=== PATIENT | female | born 1965 | race Caucasian/White ===

== ENCOUNTER 2017-10-12 04:19 | Inpatient (IN) | payer OTHER ==
[~2017-10-12] VITALS: Ht 157.5 cm; Wt 82.6 kg
--- NOTE | 2017-10-12 04:52 | NUR ---
PT BIBA FOR HBP AND HEADACHE X 1 WEEK PER PT. PT AOX3 RR EVEN AND UNLABORED. NO SOB NOTED. NAD NOTED. NO NVD AT THIS TIME. PT NOT DIAPHORETIC. PT GOWNED AND PLACED ON MONITOR. DR LOO AT BEDSIDE FOR EVAL.
[2017-10-12 05:00] LABS: BASOPHILS # (AUTO) 0.1 /CMM (0.0-0.2); BASOPHILS % (AUTO) 0.6 % (0.0-2.0); EOSINOPHILS % (AUTO) 1.2 % (0.0-6.0); HEMATOCRIT 37 % (33-45); HEMOGLOBIN 12.6 g/dL (11.5-14.8); LYMPHOCYTES # (AUTO) 3.4 /CMM (0.8-4.8); LYMPHOCYTES % (AUTO) 30.7 % (20.0-44.0); MEAN CORPUSCULAR HGB CONC 34 g/dl (31.0-36.0); MEAN CORPUSCULAR VOLUME 85 fL (82-100); MONOCYTES # (AUTO) 0.6 /CMM (0.1-1.30); MONOCYTES % (AUTO) 5.2 % (2.0-12.0); NEUTROPHILS % (AUTO) 62.3 % (43.0-81.0); PLATELET COUNT (AUTO) 313 /CMM (150-450); RDW COEFFICIENT OF VARIATION 13.9 (11.5-15.0); WHITE BLOOD COUNT (AUTO) 11.2 K/uL (4.3-11.0)
[2017-10-12 05:10] LABS: CALCIUM, SERUM 8.8 mg/dL (8.5-10.1); CARBON DIOXIDE 25 mmol/L (21-32); CHLORIDE 90 mmol/L (98-107); CREATININE 0.8 mg/dL (0.6-1.3); GLUCOSE 132 mg/dL (74-106); SODIUM SERUM 127 mmol/L (136-145); UREA NITROGEN, BLOOD 11 mg/dL (7-18)
[2017-10-12 05:14] LABS: INR 0.98 (0.87-1.13)
[2017-10-12 05:18] LABS: TROPONIN I < 0.017 ng/mL (0.00-0.056)
[2017-10-12] MEDS ORDERED: IV NS 0.9% 1,000 ML BAG IV ONE (05:30)
[2017-10-12] MEDS ORDERED: POTASSIUM CHLORIDE 20 MEQ TAB.PRT.SR PO ONE ×2 (05:30→05:33)
--- NOTE | 2017-10-12 06:59 | NUR ---
PT APPEARS COMFORTABLE. VSS.
[2017-10-12] MEDS ORDERED: IV NS 0.9% 500 ML IV PRN (07:00)
[2017-10-12] MEDS ORDERED: NITROGLYCERIN 0.4 MG/TAB BOTTLE SL PRN (07:00)
[2017-10-12] MEDS ORDERED: NITROGLYCERIN PACKET 1 GM PACKET TD PRN (07:00)
--- NOTE | 2017-10-12 07:27 | NUR ---
PATIENT ON BED. VSS
--- NOTE | 2017-10-12 07:27 | NUR ---
REPORT GIVEN TO HAYDEN CORONEL.
--- NOTE | 2017-10-12 07:27 | NUR ---
PATIENT ON BEDS, VSS.
--- NOTE | 2017-10-12 08:00 | NUR ---
ADMISSION NOTES PATIENT ADMITTED FROM ER 51 Y/OLD FEMALE TELE ON Dx. OF CHEST PAIN. TELE MONITOR ON, SR-85. V/S TAKEN BP- 119/76, P-66, R-19, O2-93 ROOM AIR, T-98.4. PATIENT A/O X4. PATIENT C/O HEADACHE AT THIS TIME 01/13. PATIENT AMBULATORY SELF CARE, USING BATHROOM. SKIN ASSESSMENT DONE INTACT. NO ACUTE RESPIRATORY DISTRESS. LUNGS ARE CLEAR DURING AUSCULTATION. IV ACCESS ON LEFT AC AREA INTACT. CALL LIGHT WITHIN TO REACH, NEEDS ATTENDED AND ANTICIPATED, PATIENT MED COMPLIANT. KINJAL GARY AWARE OF NEW PATIENT AND MEDICATION. CONTINUED MONITORING.
[2017-10-12 08:07] LABS: APPEARANCE,URINE CLEAR (CLEAR); BILIRUBIN,URINE NEGATIVE (NEGATIVE); BLOOD, URINE TRACE Ery/uL (NEGATIVE); COLOR,URINE YELLOW (YELLOW); KETONES,URINE NEGATIVE (NEGATIVE); LEUKOCYTE ESTERASE ,URINE NEGATIVE (NEGATIVE); NITRITE, URINE NEGATIVE (NEGATIVE); PROTEIN,URINE NEGATIVE (NEGATIVE); UGLUCOSE NEGATIVE (NEGATIVE); UROBILINOGEN,URINE 0.2 EU/dL (0.2)
[2017-10-12] MEDS ORDERED: LORA0.5T PO (08:07)
[2017-10-12] MEDS ORDERED: HYDR12.55 PO (08:07)
[2017-10-12] MEDS ORDERED: ASPI-1152 PO (08:07)
[2017-10-12] MEDS ORDERED: FLUO20CA36 PO (08:07)
[2017-10-12 08:13] LABS: BACTERIA,URINE Few /HPF (None Seen); SQUAMOUS EPITHELIAL CELL,UR 0-2 /HPF (None Seen); WBC,URINE 0-2 /HPF (0-3)
[2017-10-12 08:45] LABS: BILIRUBIN,DIRECT 0.2 mg/dL (0.0-0.2); BILIRUBIN,TOTAL 1.3 mg/dL (0.2-1.0)
[2017-10-12] MEDS: ACETAMINOPHEN 325 MG TABLET PO PRN ×3 (09:49→19:03)
--- NOTE | 2017-10-12 09:49 | NUR ---
rn notes administered tylenol 650 mg po prn for headache per patient request, continued monitoring.
[2017-10-12] MEDS: CLOPIDOGREL BISULFATE 75 MG TABLET PO SCH (09:50)
[2017-10-12] MEDS: ASPIRIN 325 MG TABLET PO SCH (09:50)
[2017-10-12] MEDS: ENOXAPARIN SODIUM 40 MG/0.4 ML DISP.SYRIN SQ SCH (09:52)
[2017-10-12 10:00] VITALS: BP 119/76
[2017-10-12] MEDS ORDERED: MORPHINE SULFATE INJ 4 MG/ML DISP.SYRIN IV PRN (10:00)
[2017-10-12] MEDS ORDERED: IV NS 0.9% 500 ML IV ONE (11:00)
[2017-10-12 12:14] LABS: THYROID STIMULATING HORMONE 4.373 uIU/mL (0.358-3.74)
[2017-10-12] MEDS: POTASSIUM CHLORIDE 20 MEQ TAB.PRT.SR PO SCH ×3 (12:43→13:49)
[2017-10-12] MEDS: Magnesium 1GM/D5W 100ML PREMIX 100 ML IV SCH ×2 (12:44→13:48)
[2017-10-12 12:49] LABS: MAGNESIUM 1.6 mg/dL (1.8-2.4); PHOSPHORUS 3.8 mg/dL (2.5-4.9)
--- NOTE | 2017-10-12 13:55 | NUR ---
RN NOTES ADMINISTERED TYLENOL FOR GENERALIZED PAIN 5/10, INFUSING NS AT 200 ML/HR LEFT AC AREA INTACT. CALL LIGHT WITHIN TO REACH CONTINUED MONITORING.
[2017-10-12 16:00] VITALS: BP 137/85
[2017-10-12] MEDS: IV NS 0.9% 1,000 ML IV PRN ×2 (17:18→21:48)
--- NOTE | 2017-10-12 17:38 | NUR ---
RN NOTES PATIENT WAS COMPLAINING OF ANXIETY, CHEST PAIN. ADMINISTERED NITRO ONE TAB PRESCRIBED SUBLINGUAL, BP -109/74, P-70, CONTINUED MONITORING IN FIVE MINUTES. FAMILY NEXT TO THE BED.
--- NOTE | 2017-10-12 17:53 | NUR ---
RN NOTES MEDICATION WERE ADMINISTERED FOR CHEST PAIN EFFECTIVE. PATIENT EATING AT THIS TIME. CONTINUED MONITORING.
--- NOTE | 2017-10-12 18:04 | NUR ---
RN NOTES GET ORDER FOR PSYCH CONSULTATION, ORDER TAKEN AND CARRIED OUT.
--- NOTE | 2017-10-12 19:03 | NUR ---
RN NOTES ADMINISTERED TYLENOL 650 MG PO PRN FOR HEADACHE. 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 PATIENT HAS NO RESPIRATORY DISTRESS, V/S STABLE, CALL LIGHT WITHIN TO REACH. CONTINUED MONITORING.
--- NOTE | 2017-10-12 19:30 | NUR ---
MS RN OPENING NOTES RECEIVED PT IN BED ALERT, AWAKE, VERBALLY RESPONSIVE, ON ROOM AIR, RESPIRATIONS EVEN, UNLABORED, NO APPARENT DISTRESS NOTED. DENIES ANY PAIN OR DISCOMFORT AT THIS TIME. IV SITE LAC INTACT, PATENT. CALL LIGHT WITHIN REACH. BED LOCKED IN LOWEST POSITION. ATTENDED ALL NEEDS. WILL CONTINUE TO MONITOR ACCORDINGLY.
[2017-10-12 20:00] VITALS: BP 143/83
[2017-10-12 22:00] VITALS: BP 128/80
[2017-10-13] MEDS: IV NS 0.9% 1,000 ML IV PRN ×2 (02:46→07:33)
[2017-10-13] MEDS: ACETAMINOPHEN 325 MG TABLET PO PRN ×2 (05:29→18:29)
--- NOTE | 2017-10-13 06:16 | NUR ---
MS RN CLOSING NOTES PT IN BED ALERT, AWAKE, VERBALLY RESPONSIVE, ON ROOM AIR, RESPIRATIONS EVEN, UNLABORED, NO APPARENT DISTRESS NOTED. DENIES ANY PAIN OR DISCOMFORT AT THIS TIME. IV SITE INTACT, PATENT. CALL LIGHT WITHIN REACH. BED LOCKED IN LOWEST POSITION. KEPT CLEAN AND COMFORTABLE.ATTENDED ALL NEEDS. WILL ENDORSE TO DAY SHIFT FOR CONTINUITY OF CARE.
[2017-10-13 06:53] LABS: BASOPHILS % (AUTO) 0.6 % (0.0-2.0); HEMATOCRIT 36 % (33-45); HEMOGLOBIN 12.1 g/dL (11.5-14.8); LYMPHOCYTES # (AUTO) 2.2 /CMM (0.8-4.8); LYMPHOCYTES % (AUTO) 35.8 % (20.0-44.0); MEAN CORPUSCULAR HGB CONC 34 g/dl (31.0-36.0); MEAN CORPUSCULAR VOLUME 85 fL (82-100); MONOCYTES # (AUTO) 0.5 /CMM (0.1-1.30); MONOCYTES % (AUTO) 8.3 % (2.0-12.0); NEUTROPHILS # (AUTO) 3.2 /CMM (1.8-8.9); NEUTROPHILS % (AUTO) 53.3 % (43.0-81.0); PLATELET COUNT (AUTO) 304 /CMM (150-450); RDW COEFFICIENT OF VARIATION 14.6 (11.5-15.0); RED BLOOD CELL COUNT(AUTO) 4.16 MIL/uL (4.0-5.2)
[2017-10-13 07:02] LABS: APPEARANCE,URINE CLEAR (CLEAR); BILIRUBIN,URINE NEGATIVE (NEGATIVE); BLOOD, URINE NEGATIVE Ery/uL (NEGATIVE); KETONES,URINE NEGATIVE (NEGATIVE); LEUKOCYTE ESTERASE ,URINE NEGATIVE (NEGATIVE); NITRITE, URINE NEGATIVE (NEGATIVE); PH,URINE 6.5 (5.0-8.0); PROTEIN,URINE NEGATIVE (NEGATIVE); UGLUCOSE NEGATIVE (NEGATIVE); UROBILINOGEN,URINE 0.2 EU/dL (0.2)
[2017-10-13 07:08] LABS: ALANINE AMINOTRANSFERASE 48 U/L (12-78); ALBUMIN 3.5 g/dL (3.4-5.0); ALKALINE PHOSPHATASE 80 U/L (46-116); ASPARTATE AMINOTRANSFERASE 31 U/L (15-37); BILIRUBIN,TOTAL 0.7 mg/dL (0.2-1.0); CALCIUM, SERUM 8.3 mg/dL (8.5-10.1); CARBON DIOXIDE 27 mmol/L (21-32); CHLORIDE 107 mmol/L (98-107); CREATININE 0.6 mg/dL (0.6-1.3); GLUCOSE 94 mg/dL (74-106); MAGNESIUM 3.2 mg/dL (1.8-2.4); POTASSIUM 3.8 mmol/L (3.5-5.1); SODIUM SERUM 142 mmol/L (136-145); TOTAL PROTEIN, SERUM 7.7 g/dL (6.4-8.2); UREA NITROGEN, BLOOD 8 mg/dL (7-18)
[2017-10-13 07:12] LABS: CHOLESTEROL 228 mg/dL (<200); HDL CHOLESTEROL 60 mg/dL (40-60); LDL 150 mg/dL (0-99); TRIGLYCERIDES 118 mg/dL (30-150); TROPONIN I < 0.017 ng/mL (0.00-0.056)
[2017-10-13 07:23] LABS: COLOR,URINE STRAW (YELLOW)
[2017-10-13 08:00] VITALS: BP 121/69
--- NOTE | 2017-10-13 08:00 | NUR ---
RN NOTES SEEN PATIENT IN THE BED A/O X4, MEDICATION WERE NIGHT NURSE GIVEN FOR PAIN EFFECTIVE, SCHEDULED MEDICATION ADMINISTERED, V/S STABLE, INFUSING NS AT 200 ML/HR IN LEFT AC AREA INTACT. PATIENT AMBULATORY, SELF CARE. CALL LIGHT WITHIN TO REACH, CONTINUED MONITORING.
[2017-10-13] MEDS: ASPIRIN 325 MG TABLET PO SCH (09:00)
[2017-10-13] MEDS: ENOXAPARIN SODIUM 40 MG/0.4 ML DISP.SYRIN SQ SCH (09:01)
[2017-10-13] MEDS: CLOPIDOGREL BISULFATE 75 MG TABLET PO SCH (09:01)
--- NOTE | 2017-10-13 11:15 | NUR ---
RN NOTES PATIENT SITTING IN THE CHAIR, C/O GETTING ANXIOUS, HEART PALPITATION, DIZZINESS, AND DISBALANCE, ALSO COPLANING OF MID UPPER BACK PAIN 4/10, AND LEFT UPPER CHEST PAIN. PATIENT SEEN BY DR ROBB, AND KINJAL GARY. GET VERBAL ORDER ORTHOSTATIC V/S. ORDER TAKEN AND CARRIED OUT. CALL LIGHT WITHIN TO REACH, CONTINUED MONITORING.
[2017-10-13 11:30] VITALS: BP 151/83
[2017-10-13 11:31] VITALS: BP 149/92
[2017-10-13 11:32] VITALS: BP 135/87
[2017-10-13] MEDS: OLANZAPINE 2.5 MG TABLET PO SCH ×2 (12:30→17:36)
[2017-10-13 16:00] VITALS: BP 142/80
--- NOTE | 2017-10-13 18:29 | NUR ---
RN NOTES ADMINISTERED TYLENOL 650 MG PO PRN FOR HEADACHE, PER PATIENT REQUEST,V/S STABLE, SCHEDULED MEDICATION ADMINISTERED, PATIENT AMBULATORY SELF CARE, CALL LIGHT WITHIN TO REACH. CONTINUED MONITORING. ENDORSED ONCOMING NURSE FOR SHONNA.
--- NOTE | 2017-10-13 19:30 | NUR ---
RN NOTE; RECEIVED PT IN BED W/ FAMILY AT THE BED SIDE. BREATHING EVENLY. NO SOB. DENIED CP. SKIN WARM AND DRY. BED LOW LOCKED. CALL LIGHT WITHIN REACH. WILL CONT TO MONITOR .
[2017-10-13 20:00] VITALS: BP 136/71
--- NOTE | 2017-10-14 06:17 | NUR ---
PT AWAKE AND ALERT. STABLE W/ NO ACUTE EVENT DURING THE NIGHT,. NO C/O PAIN OR DISCOMFORT , NO CHEST PAIN. NEEDS ATTENDED. BED LOW LOCKED. CALL LIGHT WITHIN REACH, WILL CONT TO MONITOR AND WILL ENDORSE TO AM SHIFT FOR SHONNA.
[2017-10-14 08:00] VITALS: BP 129/83
[2017-10-14] MEDS ORDERED: ERGOCALCIFEROL (VITAMIN D 2) 50,000 UNIT CAPSULE PO SCH (08:00)
[2017-10-14] MEDS ORDERED: ASPIRIN EC 81 MG TABLET.DR PO SCH (09:00)
[2017-10-14] MEDS: ENOXAPARIN SODIUM 40 MG/0.4 ML DISP.SYRIN SQ SCH (09:00)
[2017-10-14] MEDS: OLANZAPINE 2.5 MG TABLET PO SCH (09:19)
[2017-10-14] MEDS: CLOPIDOGREL BISULFATE 75 MG TABLET PO SCH (09:19)
--- NOTE | 2017-10-14 13:10 | NUR ---
DISCHARGE INSTRUCTIONS GIVEN TO THE PATIENT AND ABLE TO UNDERSTAND. ALL PAPERWORK SIGNED AND BELONGINGS ACCOUNTED FOR. NEW PRESCRIPTION FOR ZYPREXA GIVEN TO THE PATIENT WITH INSTRUCTIONS TO TO START THE MEDICATION TONIGHT WITH DINNER; ALSO GAVE FOLLOW UP INSTRUCTIONS FOR DR BYRNES. PATIENT STATES SHE HAS PLENTY OF HER OTHER PRESCRIPTIONS AT HOME, INCLUDING STATIN. PATIENT REFUSED SETTING A FOLLOW UP APPOINTMENT WITH A EDGE STAINER MACHINE. STATES "I WILL CALL MY DOCTOR TOMORROW AND SEE WHO I WILL SEE." EXPLAINED THE IMPORTANCE OF FOLLOW UP WITH A EDGE STAINER MACHINE. PATIENT STATES UNDERSTANDING AND SAYS SHE WILL CALL FIRST THING TOMORROW MORNING. IV REMOVED AND PRESSURE APPLIED, NO BLEEDING NOTED AT THE SITE. PATIENT REFUSED FLU VACCINE SHE BELIEVES IT WILL NOT WORK. PATIENT LEFT IN STABLE CONDITION, WITH TO HOME. NO SOB OR DISTRESS NOTED. PATIENT DENIES CHEST OR GENERALIZED PAIN.
== END 2017-10-14 13:04 | disposition home or self-care (01) | DRG 203 ==
LOC: ER 04:22 → TELE 08:04 → MED 13:01
PROVIDERS: ADMIT Registered Nurse; ATTEND Registered Nurse
DX: R07.89 Other chest pain (principal); E87.2 Acidosis; I95.1 Orthostatic hypotension; E86.0 Dehydration; E87.1 Hypo-osmolality and hyponatremia; E87.6 Hypokalemia; F41.0 Panic disorder [episodic paroxysmal anxiety]; D72.829 Elevated white blood cell count, unspecified; F41.9 Anxiety disorder, unspecified; E86.1 Hypovolemia; I10 Essential (primary) hypertension; E78.5 Hyperlipidemia, unspecified; F39 Unspecified mood [affective] disorder; F31.9 Bipolar disorder, unspecified
CPT/HCPCS: 36415; 71045-TC; 80048-TC; 80053-TC; 80061-TC; 80305; 81000-TC; 82247-TC; 82248-TC; 82306; 83605-TC; 83735-TC; 84100-TC; 84439-TC; 84443-TC; 84484-TC; 85025-TC; 85730-TC; 87040-TC; 87081-TC; 93307-TC; A4606; J1650; J3475; J7030; Z7610

== ENCOUNTER 2017-10-19 02:15 | Emergency (ER) | payer OTHER ==
[~2017-10-19] VITALS: Ht 157.5 cm; Wt 83.9 kg
[~2017-10-19 02:15] MED LIST: ASPI-1152 PO; HYDR12.55 PO; LORA0.5T PO
--- NOTE | 2017-10-19 02:23 | NUR ---
PT AMBULATORY TO ER BED 10. BIBSELF C/O ANXIETY SINCE 11PM. TOOK OLANZAPINE 2.5MG AT 11PM YESTERDAY. PT PLACED IN GOWN AND ON OPERATIONS SPECIALIST. VSS/RESP EVEN UNLABORED/NAD NOTED/SKIN WARM AND DRY/AFEBRILE/DENIES N-V-D/AOX4. AWAITING MD RUTH.
--- NOTE | 2017-10-19 02:48 | NUR ---
EMT AT BEDSIDE FOR EKG.
[2017-10-19] MEDS ORDERED: DIAZEPAM 5 MG TABLET ONE (02:49)
[2017-10-19] MEDS ORDERED: ASPIRIN 81 MG TAB.CHEW ONE (02:50)
--- NOTE | 2017-10-19 02:50 | NUR ---
LAB AT BEDSIDE FOR DRAW.
[2017-10-19] MEDS ORDERED: ASPIRIN 81 MG TAB.CHEW PO ONE (03:00)
[2017-10-19] MEDS ORDERED: DIAZEPAM 5 MG TABLET PO ONE (03:00)
[2017-10-19 03:12] LABS: BASOPHILS % (AUTO) 0.4 % (0.0-2.0); EOSINOPHILS % (AUTO) 3.5 % (0.0-6.0); HEMATOCRIT 36 % (33-45); HEMOGLOBIN 12.3 g/dL (11.5-14.8); LYMPHOCYTES % (AUTO) 23.4 % (20.0-44.0); MEAN CORPUSCULAR HGB CONC 35 g/dl (31.0-36.0); MEAN CORPUSCULAR VOLUME 84 fL (82-100); MONOCYTES # (AUTO) 0.4 /CMM (0.1-1.30); MONOCYTES % (AUTO) 4.6 % (2.0-12.0); NEUTROPHILS % (AUTO) 68.1 % (43.0-81.0); PLATELET COUNT (AUTO) 317 /CMM (150-450); RDW COEFFICIENT OF VARIATION 14.4 (11.5-15.0); RED BLOOD CELL COUNT(AUTO) 4.21 MIL/uL (4.0-5.2); WHITE BLOOD COUNT (AUTO) 8.8 K/uL (4.3-11.0)
--- NOTE | 2017-10-19 03:17 | NUR ---
XRAY AT BEDSIDE.
[2017-10-19 03:24] LABS: CALCIUM, SERUM 8.8 mg/dL (8.5-10.1); CARBON DIOXIDE 25 mmol/L (21-32); CHLORIDE 98 mmol/L (98-107); CREATININE 0.7 mg/dL (0.6-1.3); GLUCOSE 109 mg/dL (74-106); POTASSIUM 3.4 mmol/L (3.5-5.1); SODIUM SERUM 135 mmol/L (136-145); UREA NITROGEN, BLOOD 9 mg/dL (7-18)
[2017-10-19 03:32] LABS: TROPONIN I < 0.017 ng/mL (0.00-0.056)
[2017-10-19 03:37] LABS: ALANINE AMINOTRANSFERASE 39 U/L (12-78); ALBUMIN 3.9 g/dL (3.4-5.0); ALKALINE PHOSPHATASE 115 U/L (46-116); ASPARTATE AMINOTRANSFERASE 28 U/L (15-37); B-TYPE NATRIURETIC PEPTIDE 68 PG/ML (0-125); BILIRUBIN,DIRECT 0.1 mg/dL (0.0-0.2); BILIRUBIN,TOTAL 0.7 mg/dL (0.2-1.0); TOTAL PROTEIN, SERUM 8.4 g/dL (6.4-8.2)
--- NOTE | 2017-10-19 04:12 | NUR ---
Patient discharged with family to home in stable condition. Written and verbal after care instructions given, instructed not to drive. Patient and family verbalizes understanding of instruction. Patient is awake and alert to self, day, and place. Patient ambulatory with a steady gait.
[2017-10-19 04:14] VITALS: BP 144/87
== END 2017-10-19 04:15 | disposition home or self-care (01) ==
LOC: ER 02:18
DX: F41.9 Anxiety disorder, unspecified (principal); R07.9 Chest pain, unspecified; Z79.82 Long term (current) use of aspirin
CPT/HCPCS: 36415; 71045; 80048; 80076; 83880; 84484; 85025; 93005; 99285; A4606; Z7610

== ENCOUNTER 2019-03-04 01:17 | Emergency (ER) | payer OTHER ==
[~2019-03-04] VITALS: Ht 157.5 cm; Wt 81.6 kg
--- NOTE | 2019-03-04 01:25 | NUR ---
to bed 2 ambulatory c/o nonradiating L sided chest pain, L arm numbness since 0900. pt aaox4 no acute distress noted, resp even and unlabored. skin warm, nondiaphoretic. place pt on cardiac monitoring, continuous pox. pennding er md bautista.
--- NOTE | 2019-03-04 01:26 | NUR ---
er md at bedside to eval pt with orders received. will carry out orders.
[2019-03-04] MEDS ORDERED: ASPIRIN 325 MG TABLET ONE (01:27)
[2019-03-04] MEDS ORDERED: ASPIRIN 325 MG TABLET PO ONE (01:30)
--- NOTE | 2019-03-04 01:33 | NUR ---
pt medicated as ordered.
[2019-03-04 01:42] LABS: HEMATOCRIT 41 % (33-45); HEMOGLOBIN 14.1 g/dL (11.5-14.8); MEAN CORPUSCULAR HGB CONC 34 g/dl (31.0-36.0); MEAN CORPUSCULAR VOLUME 89 fL (82-100); NEUTROPHILS % (AUTO) 52.3 % (43.0-81.0); PLATELET COUNT (AUTO) 317 /CMM (150-450); RED BLOOD CELL COUNT(AUTO) 4.64 MIL/uL (4.0-5.2); WHITE BLOOD COUNT (AUTO) 8.5 K/uL (4.3-11.0)
[2019-03-04 01:43] LABS: BASOPHILS % (AUTO) 0.5 % (0.0-2.0); EOSINOPHILS % (AUTO) 3.8 % (0.0-6.0); LYMPHOCYTES % (AUTO) 38.1 % (20.0-44.0); MONOCYTES % (AUTO) 5.3 % (2.0-12.0)
[2019-03-04 01:56] LABS: CALCIUM, SERUM 9.1 mg/dL (8.5-10.1); CARBON DIOXIDE 28 mmol/L (21-32); CHLORIDE 99 mmol/L (98-107); CREATININE 0.8 mg/dL (0.6-1.3); GLUCOSE 110 mg/dL (74-106); POTASSIUM 3.4 mmol/L (3.5-5.1); SODIUM SERUM 133 mmol/L (136-145); UREA NITROGEN, BLOOD 8 mg/dL (7-18)
[2019-03-04] MEDS ORDERED: IBUPROFEN 400 MG TABLET PO ONE (02:00)
[2019-03-04] MEDS ORDERED: IBUPROFEN 400 MG TABLET ONE (02:48)
--- NOTE | 2019-03-04 02:55 | NUR ---
IV removed. Catheter intact and site benign. Pressure and 4x4 applied to site. No bleeding noted. Patient discharged to home in stable condition. Written and verbal after care instructions given. Patient verbalizes understanding of instruction. ambulatory with a steady gait
[2019-03-04 05:59] VITALS: BP 126/74
[2019-03-04 06:00] LABS: BILIRUBIN,TOTAL 0.7 mg/dL (0.2-1.0)
[2019-03-04 06:01] LABS: ALANINE AMINOTRANSFERASE 23 U/L (12-78); ALKALINE PHOSPHATASE 150 U/L (46-116); ASPARTATE AMINOTRANSFERASE 29 U/L (15-37); B-TYPE NATRIURETIC PEPTIDE 81 PG/ML (0-125); BILIRUBIN,DIRECT 0.1 mg/dL (0.0-0.2); TOTAL PROTEIN, SERUM 8.4 g/dL (6.4-8.2)
== END 2019-03-04 06:00 | disposition home or self-care (01) ==
LOC: ER 01:17
DX: R07.89 Other chest pain (principal); I10 Essential (primary) hypertension; I25.10 Atherosclerotic heart disease of native coronary artery without angina pectoris; E78.5 Hyperlipidemia, unspecified; F41.9 Anxiety disorder, unspecified; Z79.82 Long term (current) use of aspirin
CPT/HCPCS: 36415; 71045-TC; 80048-TC; 80076-TC; 83880; 84484-TC; 85025-TC; 85730-TC

== ENCOUNTER 2019-05-10 19:40 | Emergency (ER) | payer OTHER ==
[~2019-05-10] VITALS: Ht 157.5 cm; Wt 81.6 kg
[2019-05-10 19:47] VITALS: BP 139/89
[2019-05-10] MEDS ORDERED: IBUPROFEN 600 MG TABLET PO ONE ×2 (20:00→20:02)
== END 2019-05-10 21:31 | disposition home or self-care (01) ==
LOC: ER 19:43
DX: J06.9 Acute upper respiratory infection, unspecified (principal); I10 Essential (primary) hypertension; I25.10 Atherosclerotic heart disease of native coronary artery without angina pectoris; E78.5 Hyperlipidemia, unspecified; F41.9 Anxiety disorder, unspecified; Z86.73 Personal history of transient ischemic attack (TIA), and cerebral infarction without residual deficits; Z88.0 Allergy status to penicillin; Z79.82 Long term (current) use of aspirin; Z79.899 Other long term (current) drug therapy